=== PATIENT | female | born 1955 | race Two or more races ===

== ENCOUNTER 2017-11-18 14:40 | Emergency (ER) | payer SELFPAY ==
[~2017-11-18] VITALS: Ht 167.6 cm; Wt 75.0 kg
[2017-11-18 14:41] VITALS: BP 144/90
[2017-11-18] MEDS ORDERED: KETOROLAC 30 MG/1 ML IM ONE ×2 (15:00→16:30)
[2017-11-18] MEDS ORDERED: DIAZEPAM 5 MG TABLET PO ONE (15:00)
[2017-11-18] MEDS ORDERED: ONDANSETRON ODT 4 MG ONE (15:29)
[2017-11-18] MEDS ORDERED: HYDROmorphone 2 MG/ML, 1ML ONE (15:29)
[2017-11-18] MEDS ORDERED: HYDROmorphone 2 MG/ML, 1ML IM ONE (15:30)
[2017-11-18] MEDS ORDERED: ONDANSETRON ODT 4 MG PO ONE (15:30)
[2017-11-18] MEDS ORDERED: KETOROLAC 30 MG/1 ML ONE (16:33)
== END 2017-11-18 16:40 | disposition home or self-care (01) ==
LOC: ED 16:34
DX: S89.92XA Unspecified injury of left lower leg, initial encounter (principal); S49.91XA Unspecified injury of right shoulder and upper arm, initial encounter; G89.29 Other chronic pain; M54.6 Pain in thoracic spine; X58.XXXA Exposure to other specified factors, initial encounter; Y93.89 Activity, other specified; Y92.89 Other specified places as the place of occurrence of the external cause; Y99.8 Other external cause status
CPT/HCPCS: 96372; 99284; J1170; J1885; Q0162